=== PATIENT | female | born 1945 | race Caucasian/White ===

== ENCOUNTER 2016-06-12 12:09 | Outpatient (CLI) | payer MEDICARE | END 2016-06-12 12:10 | disposition home or self-care (01) | DX: N63 Unspecified lump in breast (principal) ==

== ENCOUNTER 2016-06-12 12:13 | Outpatient (CLI) | payer MEDICARE | END 2016-06-12 12:14 | disposition home or self-care (01) | DX: M19.042 Primary osteoarthritis, left hand (principal) ==

== ENCOUNTER 2016-06-19 13:34 | Outpatient (CLI) | payer MEDICARE | END 2016-06-19 13:35 | disposition home or self-care (01) | DX: N63 Unspecified lump in breast (principal) ==

== ENCOUNTER 2016-10-01 10:11 | Outpatient (CLI) | payer MEDICARE ==
[2016-10-01 18:01] LABS: BASOPHILS % (AUTO) 0.5 %; EOSINOPHILS # (AUTO) 0.1 10^3/uL (0.0-0.7); EOSINOPHILS % (AUTO) 2.5 %; HCT - HEMATOCRIT 34.6 % (37.0-47.0); HGB - HEMOGLOBIN 12.1 g/dL (12.0-16.0); LYMPHOCYTES # (AUTO) 1.5 10^3/uL (1.5-3.5); MEAN CORPUSCULAR HEMOGLOBIN 33.2 pg (27.0-31.0); MEAN CORPUSCULAR HGB CONC 34.9 g/dL (32.0-36.0); MEAN PLATELET VOLUME 8.5 fL (7.9-10.8); MONOCYTES # (AUTO) 0.3 10^3/uL (0.0-1.0); NEUTROPHILS # (AUTO) 2.2 10^3/uL (1.5-6.6); NUCLEATED RED BLOOD CELLS AUTO 0.1 /100WBC; RED BLOOD COUNT 3.65 10^6/uL (4.20-5.40); RED CELL DISTRIBUTION WIDTH 12.5 % (12.0-15.0); UNCORRECTED WHITE BLOOD COUNT 4.1 x10^3/uL; WHITE BLOOD COUNT 4.1 x10^3/uL (4.8-10.8)
[2016-10-01 18:12] LABS: ALBUMIN/GLOBULIN RATIO 1.5 (1.0-2.2); BILIRUBIN,TOTAL 0.6 mg/dL (0.2-1.0); BUN - BLOOD UREA NITROGEN 15 mg/dL (6-20); CARBON DIOXIDE - CO2 24 mmol/L (21-32); CHLORIDE 106 mmol/L (101-111); CHOLESTEROL 190 mg/dL; CREATININE 0.9 mg/dL (0.4-1.0); GFR - MDRD 62 (>89); GLUCOSE 121 mg/dL (70-100); HDL CHOLESTEROL 63 mg/dL; LDL/HDL RATIO 1.6 (<4.4); POTASSIUM 4.1 mmol/L (3.5-5.0); SODIUM 138 mmol/L (135-145); TOTAL PROTEIN 6.5 g/dL (6.7-8.2); TRIGLYCERIDES 127 mg/dL; VLDL CHOLESTEROL 25 mg/dL
== END 2016-10-01 10:12 | disposition home or self-care (01) ==
LOC: LAB.F 10:11
PROVIDERS: ATTEND Family Medicine
DX: Z00.00 Encounter for general adult medical examination without abnormal findings (principal); E55.9 Vitamin D deficiency, unspecified; D64.9 Anemia, unspecified
CPT/HCPCS: 36415; 80053; 80061; 82306; 85025

== ENCOUNTER 2017-07-18 16:27 | Outpatient (CLI) | payer MEDICARE | END 2017-07-18 16:28 | disposition EMS.NT | LOC: EMS 16:27 | PROVIDERS: ATTEND Surgery | DX: R22.0 Localized swelling, mass and lump, head (principal); V49.40XA Driver injured in collision with unspecified motor vehicles in traffic accident, initial encounter; Y92.413 State road as the place of occurrence of the external cause ==

== ENCOUNTER 2017-07-24 13:03 | Emergency (ER) | payer MEDICARE ==
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
[2017-07-24] MEDS ORDERED: IOPAMIDOL-300 50 ML VIAL ONE (15:11)
[2017-07-24 15:24] LABS: BASOPHILS % (AUTO) 0.5 %; EOSINOPHILS # (AUTO) 0.2 10^3/uL (0.0-0.7); EOSINOPHILS % (AUTO) 3.2 %; HGB - HEMOGLOBIN 12.4 g/dL (12.0-16.0); LYMPHOCYTES # (AUTO) 2.2 10^3/uL (1.5-3.5); LYMPHOCYTES % (AUTO) 43.9 %; MEAN CORPUSCULAR HEMOGLOBIN 31.5 pg (27.0-31.0); MEAN CORPUSCULAR HGB CONC 34.7 g/dL (32.0-36.0); MEAN PLATELET VOLUME 7.5 fL (7.9-10.8); MONOCYTES # (AUTO) 0.3 10^3/uL (0.0-1.0); MONOCYTES % (AUTO) 6.2 %; NEUTROPHILS # (AUTO) 2.3 10^3/uL (1.5-6.6); NEUTROPHILS % (AUTO) 46.2 %; PLT - PLATELET COUNT 190 10^3/uL (130-450); RED BLOOD COUNT 3.93 10^6/uL (4.20-5.40); RED CELL DISTRIBUTION WIDTH 13.4 % (12.0-15.0)
[2017-07-24 15:38] LABS: ALBUMIN 4.4 g/dL (3.2-5.5); ALBUMIN/GLOBULIN RATIO 1.3 (1.0-2.2); BILIRUBIN,TOTAL 0.6 mg/dL (0.2-1.0); CALCIUM 9.4 mg/dL (8.5-10.3); CREATININE 0.9 mg/dL (0.4-1.0); TOTAL PROTEIN 7.8 g/dL (6.7-8.2)
[2017-07-24] MEDS ORDERED: IOPAMIDOL-300 100 ML VIAL ONE (16:15)
[2017-07-24] MEDS ORDERED: IOPAMIDOL-300 100 ML VIAL IVP ONE (16:24)
[2017-07-24] MEDS ORDERED: IOPAMIDOL-300 50 ML VIAL PO ONE (16:36)
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
[2017-07-24 17:41] VITALS: BP 149/83
== END 2017-07-24 17:40 | disposition home or self-care (01) ==
LOC: ED 13:03
DX: K66.9 Disorder of peritoneum, unspecified (principal); S19.9XXA Unspecified injury of neck, initial encounter; V43.52XA Car driver injured in collision with other type car in traffic accident, initial encounter; Y92.410 Unspecified street and highway as the place of occurrence of the external cause; R03.0 Elevated blood-pressure reading, without diagnosis of hypertension; M54.5 Low back pain; Z96.649 Presence of unspecified artificial hip joint
CPT/HCPCS: 36415; 72125; 72131; 74177; 80053; 83690; 85025; 99283; Q9967

== ENCOUNTER 2018-07-29 09:14 | Outpatient (CLI) | payer MEDICARE ==
[2018-07-29 17:29] LABS: HEMOGLOBIN A1C 0.6 g/dL; HEMOGLOBIN A1C % 6.4 % (4.6-6.2)
[2018-07-29 17:35] LABS: ALBUMIN/GLOBULIN RATIO 1.3 (1.0-2.2); ALKALINE PHOSPHATASE 60 IU/L (42-121); ALT ALANINE AMINOTRANSFERASE 21 IU/L (10-60); AST ASPARTATE AMINOTRANSFERASE 20 IU/L (10-42); BILIRUBIN,TOTAL 0.7 mg/dL (0.2-1.0); BUN - BLOOD UREA NITROGEN 22 mg/dL (6-20); CALCIUM 9.4 mg/dL (8.5-10.3); CARBON DIOXIDE - CO2 26 mmol/L (21-32); CHLORIDE 102 mmol/L (101-111); CHOL/HDL RATIO 3.5 (<4.4); CHOLESTEROL 212 mg/dL; CREATININE 0.8 mg/dL (0.4-1.0); GFR - MDRD 71 (>89); GLUCOSE 130 mg/dL (70-100); HDL CHOLESTEROL 61 mg/dL; LDL CHOLESTEROL,CALCULATED 126 mg/dL; LDL/HDL RATIO 2.1 (<4.4); SODIUM 138 mmol/L (135-145); VLDL CHOLESTEROL 25 mg/dL
== END 2018-07-29 09:15 | disposition home or self-care (01) ==
LOC: LAB.F 09:14
PROVIDERS: ATTEND Internal Medicine
DX: I10 Essential (primary) hypertension (principal); R73.01 Impaired fasting glucose
CPT/HCPCS: 36415; 80053; 80061; 83036; 83721

== ENCOUNTER 2020-05-08 15:57 | Outpatient (CLI) | payer MEDICARE ==
--- NOTE | 2020-05-08 16:25 | XRAY Report ---
PROCEDURE: Knee 3 View RT INDICATIONS: RT KNEE PAIN TECHNIQUE: 3 views of the right knee(s) were acquired. COMPARISON: None. FINDINGS: Bones: No fractures or dislocations. No suspicious bony lesions. Moderate tricompartmental periart icular osteophyte formation. Moderate medial compartment narrowing. Soft tissues: No joint effusion. No suspicious soft tissue calcifications. IMPRESSION: 1. Osteoarthritis with medial compartment narrowing. 2. No acute fracture. No osseous lesion. If symptoms and/or clinical suspicion for pathology continue , further assessment with repeat plain films, or advanced imaging (e.g., CT, MRI, or bone scan) is re commended for further assessment. Reviewed by: Jose Persaud MD on 05/08/2020 4:24 PM PST Approved by: Jose Persaud MD on 05/08/2020 4:24 PM PST Station ID: [id number]
== END 2020-05-08 15:58 | disposition home or self-care (01) ==
LOC: DI 15:57
PROVIDERS: ATTEND Nurse Practitioner Family
DX: M17.11 Unilateral primary osteoarthritis, right knee (principal)

== ENCOUNTER 2021-01-29 08:42 | Outpatient (CLI) | payer MEDICARE ==
--- NOTE | 2021-01-30 11:51 | Mammography Report ---
BILATERAL DIGITAL SCREENING MAMMOGRAM 3D/2D: 01/29/2021 CLINICAL: Routine screening. Comparison is made to exams dated: 06/19/2016 ultrasound, 06/12/2016 mammogram, 09/07/2014 mammogram, and 02/11/2012 mammogram - [facility]. The tissue of both breasts is predominantly fa tty. No significant masses, calcifications, or other findings are seen in either breast. There has been no significant interval change. IMPRESSION: NEGATIVE There is no mammographic evidence of malignancy. A 1 year screening mammogram is recommended. This exam was interpreted at Station ID: [id number]. NOTE: For mammograms, a report in lay terms will be sent to the patient. Approximately 15% of breast malignancies will not be visualized mammographically. In the management of a palpable breast mass, a negative mammogram must not discourage biopsy of a clinically suspicious lesion. Electronically Signed By: Rylan Kang M.D., jr/raquel:01/29/2021 10:30:49 ACR BI-RADS Category 1: Negative 3341F PARENCHYMAL PATTERN: (F) - The breast(s) demonstrate(s) diffuse fatty replacement. BI-RADS CATEGORY: (1) - 1 RECOMMENDATION: (ANNUAL) - Recommend routine annual screening mammography. [id number] 1 year screening LATERALITY: (B)
== END 2021-01-29 08:43 | disposition home or self-care (01) ==
LOC: DI 08:42
PROVIDERS: ATTEND Nurse Practitioner Family
DX: Z12.31 Encounter for screening mammogram for malignant neoplasm of breast (principal)

== ENCOUNTER 2021-08-27 09:30 | Day surgery (SDC) | payer MEDICARE ==
[2021-08-27] MEDS ORDERED: LACTATED RINGERS 1,000 ML IV ONE ×2 (09:33→10:57)
[2021-08-27] MEDS ORDERED: PROPOFOL 500 MG/50 ML 500 MG/50 ML VIAL ONE (10:01)
--- NOTE | 2021-08-27 10:04 | ANESTHESIA ---
Pre-Anesthesia VS, & Labs - Diagnosis screening - Procedure colonoscopy Vital Signs: Temp Pulse Resp BP Pulse Ox 36.3 C L 104 H 18 145/76 H 96 08/27/21 09:37 08/27/21 09:37 08/27/21 09:37 08/27/21 09:37 08/27/21 09:37 Height: 5 ft 1 in Weight (kg): 80 kg Body Mass Index: 33.3 BMI Classification: Obese - NPO >8 hours - Is Patient ?: No - Lab Results Current Lab Results: Laboratory Tests 08/27/21 09:51: POC Whole Bld Glucose 101 H Lab results reviewed: Yes Home Medications and Allergies Multivitamin [Multivitamins] 1 each PO DAILY 12/29/12 Lisinopril [Zestril] 10 mg PO DAILY 12/14/20 Rosuvastatin Calcium [Crestor] 10 mg PO DAILY 12/14/20 hydroCHLOROthiazide [Hydrochlorothiazide] 25 mg PO DAILY 12/14/20 metFORMIN [Glucophage] 500 mg PO BIDWM 12/14/20 Allergies/Adverse Reactions: Allergies Allergy/AdvReac Type Severity Reaction Status Date / Time Latex, Natural Rubber Allergy Intermediate Hives Verified 12/29/12 14:35 Anes History & Medical History - Anesthetic History Anesthesia Complications: reports: No previous complications Family history of Anesthesia Complications: Denies Family history of Malignant Hyperthermia: Denies - Medical History Cardiovascular: reports: Hypertension, High cholesterol Pulmonary: reports: None Gastrointestinal: reports: None Urinary: reports: None Musculoskeletal: reports: None Endocrine/Autoimmune: reports: Type 2 diabetes Smoking Status: Never smoker - Surgical History General: reports: Cholecystectomy Eyes Ears Nose Throat (EENT): reports: Tonsil/Adenoidectomy Orthopedic: reports: Hip replacement Exam General: Alert, Oriented x3, Cooperative, No acute distress Dental: WNL Mouth Openin Fingerbreadth Neck Mobility: Normal Mallampati classification: II Plan Anesthesia Type: General, Total IV Consent for Procedure(s) Verified and Reviewed: Yes Code Status: Attempt Resuscitation ASA classification: 3-Severe systemic disease Is this case an emergency?: No
[2021-08-27] MEDS ORDERED: MIDAZOLAM 2 MG/2 ML VIAL ONE (10:21)
[2021-08-27] MEDS ORDERED: SODIUM CHLORIDE FLUSH 0.9% 10 ML SYRINGE IVP ONE (11:15)
[2021-08-27 12:20] VITALS: BP 117/65
--- NOTE | 2021-08-27 12:42 | ANESTHESIA POST OP EVALUATION ---
Anesthesia Post Eval - Post Anesthesia Eval Vitals: Last Vital Signs Temp 36 C L 08/27/21 12:15 Pulse 74 08/27/21 12:15 Resp 18 08/27/21 12:15 BP 117/65 08/27/21 12:15 Pulse Ox 94 08/27/21 12:15 CV Function Including HR & BP: Stable Pain Control: Satisfactory Nausea & Vomiting: Negative Mental Status: Baseline Respiratory Status: Airway Patent Hydration Status: Satisfactory Anesthesia Complications: None
== END 2021-08-27 09:31 | disposition home or self-care (01) ==
LOC: SDS 09:30
PROVIDERS: ATTEND Surgery
PROC: 0DBL8ZZ Excision of Transverse Colon, Via Natural or Artificial Opening Endoscopic (ICD-10-PCS; principal; 2021-08-27 10:45)
DX: Z12.11 Encounter for screening for malignant neoplasm of colon (principal); K63.5 Polyp of colon; K57.30 Diverticulosis of large intestine without perforation or abscess without bleeding; K64.8 Other hemorrhoids; K64.4 Residual hemorrhoidal skin tags; E66.9 Obesity, unspecified; Z68.33 Body mass index [BMI] 33.0-33.9, adult; E11.9 Type 2 diabetes mellitus without complications; Z79.84 Long term (current) use of oral hypoglycemic drugs
CPT/HCPCS: 45380; J7120

== ENCOUNTER 2022-10-31 11:37 | Outpatient (CLI) | payer MEDICARE ==
--- NOTE | 2022-10-31 16:25 | XRAY Report ---
PROCEDURE: Knee 3 View RT INDICATIONS: KNEE PAIN TECHNIQUE: 2 views of the right knee(s) were acquired. COMPARISON: X-ray right knee, 05/08/2020. FINDINGS: Bones: No fractures or dislocations. No suspicious bony lesions. Severe osteoarthritis, most pronou nced in the medial femorotibial compartment and patellofemoral compartment. Soft tissues: Small knee joint effusion. No suspicious soft tissue calcifications or masses. IMPRESSION: 1. Severe osteoarthritis. 2. Small knee joint effusion. Reviewed by: Suhail Luciano MD on 10/31/2022 4:24 PM PDT Approved by: Suhail Luciano MD on 10/31/2022 4:24 PM PDT Station ID: [id number]
== END 2022-10-31 11:38 | disposition home or self-care (01) ==
LOC: DI 11:37
PROVIDERS: ATTEND Nurse Practitioner Family
DX: M17.11 Unilateral primary osteoarthritis, right knee (principal); M25.461 Effusion, right knee

== ENCOUNTER 2022-12-01 08:00 | Outpatient (CLI) | payer MEDICARE ==
--- NOTE | 2022-12-01 12:09 | XRAY Report ---
PROCEDURE: Knee 2 View RT INDICATIONS: RIGHT KNEE PAIN, BILAT AP W/B AND RIGHT TUNNEL ONLY TECHNIQUE: 2 views of the bilateral and right knee(s) were acquired. COMPARISON: X-ray right knee 10/31/2022. FINDINGS: Bones: No fractures or dislocations. No suspicious bony lesions. Redemonstration of tricompartmenta l osteoarthritic changes of the right knee with severe joint space narrowing medially. Tricompartment al osteoarthritic changes of the left knee with moderate medial joint space narrowing. Soft tissues: No suspicious soft tissue calcifications or masses. IMPRESSION: Severe osteoarthritic changes of the right knee. Reviewed by: Moshe Slade MD on 12/01/2022 12:08 PM PDT Approved by: Moshe Slade MD on 12/01/2022 12:08 PM PDT Station ID: [id number]
== END 2022-12-01 23:59 | disposition home or self-care (01) ==
LOC: DI.WOS 08:00
PROVIDERS: ATTEND Physician Assistant Surgical
DX: M17.11 Unilateral primary osteoarthritis, right knee (principal)

== ENCOUNTER 2023-01-13 15:24 | Outpatient (CLI) | payer MEDICARE ==
--- NOTE | 2023-01-13 18:25 | Ultrasound Report ---
PROCEDURE: Carotid Doppler Complete INDICATIONS: CAROTID BRUIT TECHNIQUE: Duplex carotid ultrasound was obtained and customer success representative images were recorded with veloc ity measurements. Any estimate of stenosis was obtained with reference to standards endorsed by the [employer] COMPARISON: None. FINDINGS: Right side: Brachial blood pressure: 127/77 mm Hg. Common carotid artery peak systolic velocity: 73 cm/sec. Internal carotid artery peak systolic velocity: 79 cm/sec. Internal carotid artery end diastolic velocity: 20 cm/sec. External carotid artery peak systolic velocity: 53 cm/sec. ICA/CCA peak systolic ratio: 1.0 . Brennan scale imaging description: Mild arthritic plaque Percent internal carotid artery stenosis: Less than 50. Vertebral artery: Flow direction is antegrade. Left side: Brachial blood pressure: 142/68 mm Hg. Common carotid artery peak systolic velocity: 70 cm/sec. Internal carotid artery peak systolic velocity: 77 cm/sec. Internal carotid artery end diastolic velocity: 26 cm/sec. External carotid artery peak systolic velocity: 72 cm/sec. ICA/CCA peak systolic ratio: 1.1 . Brennan scale imaging description: Unremarkable Percent internal carotid artery stenosis: 0. Vertebral artery: Flow direction is antegrade. IMPRESSION: 1. Mild right proximal ICA extrahepatic plaque without hemodynamically significant stenosis in either proximal ICA Reviewed by: Benny Tineo MD on 01/13/2023 5:24 PM JULIA Approved by: Benny Tineo MD on 01/13/2023 5:24 PM AKDT Station ID: [id number]
== END 2023-01-13 15:25 | disposition home or self-care (01) ==
LOC: DI 15:24
PROVIDERS: ATTEND Nurse Practitioner Family
DX: Z00.00 Encounter for general adult medical examination without abnormal findings (principal); R09.89 Other specified symptoms and signs involving the circulatory and respiratory systems; I65.21 Occlusion and stenosis of right carotid artery
CPT/HCPCS: 93880

== ENCOUNTER 2023-02-04 14:09 | Outpatient (CLI) | payer MEDICARE ==
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
== END 2023-02-04 14:10 | disposition home or self-care (01) ==
LOC: DI 14:09
PROVIDERS: ATTEND Nurse Practitioner Family
DX: Z78.0 Asymptomatic menopausal state (principal); M85.80 Other specified disorders of bone density and structure, unspecified site

== ENCOUNTER 2023-02-11 06:27 | Day surgery (SDC) | payer MEDICARE ==
[~2023-02-11 06:27] MED LIST: ACETAMINOPHEN 500 MG TABLET PO ONE; CELECOXIB 100 MG CAPSULE PO ONE; ceFAZolin 2 GM VIAL ONE
[2023-02-11] MEDS ORDERED: LACTATED RINGERS 1,000 ML IV ONE (06:52)
[2023-02-11] MEDS ORDERED: dexAMETHasone 4 MG TABLET PO ONE (07:00)
[2023-02-11 07:05] LABS: BASOPHILS % (AUTO) 0.8 %; EOSINOPHILS # (AUTO) 0.2 10^3/uL (0.0-0.7); EOSINOPHILS % (AUTO) 3.7 %; HCT - HEMATOCRIT 30.4 % (37.0-47.0); HGB - HEMOGLOBIN 10.4 g/dL (12.0-16.0); LYMPHOCYTES # (AUTO) 2.3 10^3/uL (1.5-3.5); MEAN CORPUSCULAR HGB CONC 34.2 g/dL (32.0-36.0); MEAN CORPUSCULAR VOLUME 93.5 fL (81.0-99.0); MEAN PLATELET VOLUME 9.2 fL (7.9-10.8); MONOCYTES # (AUTO) 0.4 10^3/uL (0.0-1.0); MONOCYTES % (AUTO) 8.4 %; NEUTROPHILS # (AUTO) 2.2 10^3/uL (1.5-6.6); NEUTROPHILS % (AUTO) 41.9 %; PLT - PLATELET COUNT 202 10^3/uL (130-450); RED BLOOD COUNT 3.25 10^6/uL (4.20-5.40); RED CELL DISTRIBUTION WIDTH 12.3 % (12.0-15.0); WHITE BLOOD COUNT 5.1 x10^3/uL (4.8-10.8)
[2023-02-11] MEDS ORDERED: VANCOMYCIN 1 GM VIAL ONE (07:09)
[2023-02-11] MEDS ORDERED: KETOROLAC 30 MG/ML VIAL ONE (07:09)
[2023-02-11] MEDS ORDERED: BUPIVACAINE 0.25% PF 30 ML VIAL ONE (07:10)
[2023-02-11] MEDS ORDERED: MIDAZOLAM 2 MG/2 ML VIAL ONE (07:30)
[2023-02-11] MEDS ORDERED: PROPOFOL 200 MG/20 ML VIAL IVP ONE ×2 (07:52→09:41)
[2023-02-11] MEDS ORDERED: PHENYLEPHRINE HCL 0.5 MG/5 ML AMPULE ONE ×2 (07:52→09:19)
[2023-02-11] MEDS ORDERED: TRANEXAMIC ACID 1,000 MG/10 ML VIAL ONE ×2 (08:18→10:08)
[2023-02-11] MEDS ORDERED: DEXAMETHASONE 4 MG/ML VIAL ONE (08:21)
[2023-02-11] MEDS ORDERED: KETOROLAC 30 MG/ML VIAL IVP ONE (08:28)
[2023-02-11] MEDS ORDERED: BUPIVACAINE 0.25% PF 30 ML VIAL SUBQ ONE ×2 (08:29)
--- NOTE | 2023-02-11 08:36 | ANESTHESIA ---
Pre-Anesthesia VS, & Labs - Diagnosis R knee OA - Procedure R TKA Vital Signs: Temp Pulse Resp BP Pulse Ox O2 Flow Rate 36.8 C 72 16 123/74 95 16 02/11/23 06:46 02/11/23 06:46 02/11/23 06:46 02/11/23 06:46 02/11/23 06:46 02/11/23 06:46 Height: 5 ft 1 in Weight (kg): 75 kg Body Mass Index: 31.2 BMI Classification: Obese - NPO >8 hours - Is Patient ?: No - Lab Results Current Lab Results: Laboratory Tests 02/11/23 07:02: WBC 5.1, RBC 3.25 L, Hgb 10.4 L, Hct 30.4 L, MCV 93.5, MCH 32.0 H, MCHC 34.2, RDW 12.3, Plt Count 202, MPV 9.2, Neut # (Auto) 2.2, Lymph # (Auto) 2.3, Will # (Auto) 0.4, Eos # (Auto) 0.2, Baso # (Auto) 0.0, Absolute Nucleated RBC 0.00, Nucleated RBC % 0.0 02/11/23 06:59: POC Whole Bld Glucose 98 Fish Bones: 02/11/23 07:02 Home Medications and Allergies Home Medications: Ambulatory Orders Cholecalciferol (Vitamin D3) [Vitamin D3] 1,000 unit PO DAILY 02/09/23 Mv-Mn/Om3/Dha/Epa/Fish/Lut/Fabienne [Ocuvite Adult 50 Plus Softgel] 1 each PO DAILY 02/09/23 Turmeric/Turmeric Root Extract [Turmeric] 500 mg PO DAILY 02/09/23 Lisinopril [Zestril] 10 mg PO DAILY 12/14/20 Rosuvastatin Calcium [Crestor] 10 mg PO DAILY 12/14/20 hydroCHLOROthiazide [Hydrochlorothiazide] 25 mg PO DAILY 12/14/20 metFORMIN [Glucophage] 500 mg PO BIDWM 12/14/20 Cholecalciferol (Vitamin D3) [Vitamin D3] 1,000 unit PO DAILY 02/09/23 Mv-Mn/Om3/Dha/Epa/Fish/Lut/Fabienne [Ocuvite Adult 50 Plus Softgel] 1 each PO DAILY 02/09/23 Turmeric/Turmeric Root Extract [Turmeric] 500 mg PO DAILY 02/09/23 Allergies/Adverse Reactions: Allergies Allergy/AdvReac Type Severity Reaction Status Date / Time Latex, Natural Rubber Allergy Intermediate Hives Verified 12/29/12 14:35 Anes History & Medical History - Anesthetic History Anesthesia Complications: reports: No previous complications Family history of Anesthesia Complications: Denies Family history of Malignant Hyperthermia: Denies - Medical History Cardiovascular: reports: Hypertension, High cholesterol Pulmonary: reports: None Gastrointestinal: reports: None Urinary: reports: None Musculoskeletal: reports: Osteoarthritis Endocrine/Autoimmune: reports: Type 2 diabetes Skin: reports: None Smoking Status: Never smoker Psychosocial: reports: No issues indicated History of Cancer?: No - Surgical History General: reports: Colonoscopy Eyes Ears Nose Throat (EENT): reports: Tonsil/Adenoidectomy Orthopedic: reports: Hip replacement Exam General: Alert, Oriented x3, Cooperative Dental: WNL Mouth Openin Fingerbreadth Neck Mobility: Normal Mallampati classification: II Thyromental Distance: 4-6 cm Respiratory: Lungs clear Cardiovascular: Regular rate Plan Anesthesia Type: General (SAB with GA back-up), Spinal Consent for Procedure(s) Verified and Reviewed: Yes Code Status: Attempt Resuscitation ASA classification: 2-Mild systemic disease Is this case an emergency?: No
[2023-02-11] MEDS ORDERED: MORPHINE 2 MG/ML CARPUJECT IVP PRN (08:44)
[2023-02-11] MEDS ORDERED: ONDANSETRON 4 MG/2 ML VIAL IVP PRN ×2 (08:44→10:32)
[2023-02-11] MEDS ORDERED: PROPOFOL 500 MG/50 ML 500 MG/50 ML VIAL ONE (08:44)
[2023-02-11] MEDS ORDERED: HYDROmorphone 0.5 MG/0.5 ML SYRINGE IVP PRN (08:44)
[2023-02-11] MEDS ORDERED: fentaNYL 100 MCG/2 ML VIAL IVP PRN (08:44)
[2023-02-11] MEDS ORDERED: METOCLOPRAMIDE 10 MG/2 ML VIAL IVP PRN (08:44)
[2023-02-11] MEDS ORDERED: ATROPINE ABBOJECT 1 MG/10 ML SYRINGE IVP PRN (08:44)
[2023-02-11] MEDS ORDERED: ePHEDrine 50 MG/ML VIAL IVP PRN (08:44)
[2023-02-11] MEDS ORDERED: NALOXONE 0.4 MG/ML VIAL IVP PRN (08:44)
[2023-02-11] MEDS ORDERED: LACTATED RINGERS 1,000 ML IV SCH (09:00)
--- NOTE | 2023-02-11 10:04 | OPERATIVE REPORT ---
Operative Report - General Procedure Date: 02/11/23 Planned Procedure: Right total knee replacement Pre-Op Diagnosis: Osteoarthritis right knee Procedure Performed: Right total knee replacement using Salgado [employer] Nephew antibiotic cemented journey 2 total knee system: #4 Oxinium femoral component, cruciate retaining; #4 primary tibial baseplate, 9 mm tibial bearing, 23 mm biconvex patella Post Op Diagnosis: Same as preoperative diagnosis - Procedure Note Primary Surgeon: Narendra Martinez MD Secondary Surgeon: Danilo Bates MD; Ayesha Guillory [facility] Anesthesia Provider: Riri Elmore CRNA Anesthesia Technique: Spinal Estimated Blood Loss (mL): 150 Indications: This is a 77-year-old woman with chronic activity related knee pain that has progressed over the past couple years. She has increasing pain and disability with activities of daily living and activities that she enjoys doing. She has tried nonoperative treatment; this has been documented in the preoperative clinic notes and history and physical. Her exam showed decreased motion, tenderness about the joint line but good stability and strength. Her x-rays showed considerable wear to the medial compartment with near [id number] on standing x-rays. She has signed informed consent agreeing to the right total knee replacement. The goal is to improve her pain and function with walking activities Findings: There was eburnated bone surfaces to the medial compartment with osteophytes about the entire tibiofemoral joint and patellofemoral joint. There was full- thickness weightbearing articular surface loss to the lateral femoral condyle. There was a nonspecific synovitis in the knee. The cruciate ligaments were intact. The menisci were intact. Complications: None - Other Other Information/Narrative: The patient was brought to the operating room and was placed in a supine position. A pneumatic tourniquet was applied to the proximal right thigh over cast padding. This was a conical shaped Luke thigh tourniquet that was sterile. A knee positioner was placed on the operating room table to facilitate knee flexion of the right knee during surgery. A timeout procedure was perfo rmed by the entire operating room team and all were in agreement. A midline longitudinal incision was made with the knee in flexion. A medial parapatellar arthrotomy was made. The anterior horn of medial and lateral menisci were released and part of patellar fat pad was excised. The knee was flexed and the patella was dislocated laterally. A drill hole was made in the intramedullary notch with a 9.5 mm drill. Osteophytes about the proximal tibia and femur had been removed with a rongure. The distal femoral cutting guide was aligned parallel to the posterior condyles. The intramedullary adrienne and guide was advanced and the distal femoral guide was stabilized with half pins. The distal 5 degrees valgus primary cut was made through the distal femoral guide. Next the extra medullary tibial guide was assembled and applied and aligned to the mechanical axis in both sagittal and coronal planes. Tibial referencing was done to allow 3 mm of bone from the most affected side. The tibial guide was stabilized with half pins. Retractors were placed medially and laterally to protect the collateral ligaments and a retractor was placed directly against the posterior bone to sublux the tibia anteriorly. A precision Snapt saw was used to make the tibial proximal cut. The tibial block was removed as a single piece and the menisci were removed as well. The extension gap was assessed with a extension block spacer using a 10 mm spacer and this was found to fit well as well as the 10 mm spacer block with the knee in 90 degrees of flexion. Next the femoral positioning guide was applied and aligned to the epicondylar axis and Kingfisher line. This was secured in place with approximately 3 degrees of external rotation. The size of the femur at the anterior lateral trochlea was a #4. Drill holes were made in the 5 and 1 #4 cutting block was inserted and secured. The 5 cuts were made to the captured block using precision saw. The flexion gap was assessed with the 11 mm spacer and was found to fit well. The patella was then prepared. A biconvex patellar reamer was used. The tibial trial #3 was then applied to the tibia and aligned to the mechanical axis. The punch fin was utilized. Trial reduction was performed with the femoral and tibial components in place. Notch resection was then through the trial component with reamer and box osteotome. Pulsatile lavage was performed. A tourniquet was applied during the cementing process. The components were inserted sequentially: Tibia, femur and lastly patellar component. Excess cement was removed and the knee was placed in extension during the hardening. Dilute Betadine irrigation was performed. The knee had full range of motion, good patellar tracking. There was good stability of the knee in full extension mid flexion and 90 degrees of flexion. There was good alignment of the right knee. The tourniquet had been deflated and had been in place for 18 minutes. Hemostasis was achieved with electrocautery. Vancomycin 2 g powder was placed in the knee joint prior to the deep closure The deep closure was performed with #1 Stratofix suture to close the arthrotomy incision. 2-0 stratofix was used to c lose the subcutaneous tissue. 3-0 Monocryl was used to do a subcuticular skin closure. Dermabond was applied to the skin incision. After the Dermabond had hardened, a silver impregnated dressing was applied. The patient tolerated the procedure well and received 2 g of Ancef intravenously and 2 g of tranexamic acid.A physician [employer] assistant football coach was used and felt to be medically necessary to provide retraction, protection of vital structures, exposure, skin closure and dressing.
[2023-02-11] MEDS ORDERED: LACTATED RINGERS 700 ML IV ONE ×2 (10:27)
[2023-02-11] MEDS ORDERED: DOCUSATE SODIUM 100 MG CAPSULE PO PRN (10:32)
[2023-02-11] MEDS ORDERED: SODIUM CHLORIDE FLUSH 0.9% 10 ML SYRINGE IVP PRN (10:32)
[2023-02-11] MEDS ORDERED: oxyCODONE 5 MG TABLET PO PRN (10:32)
[2023-02-11] MEDS ORDERED: fentaNYL 250 MCG/5 ML VIAL IVP PRN (10:32)
[2023-02-11] MEDS ORDERED: ACETAMINOPHEN 500 MG TABLET PO SCH (11:00)
[2023-02-11] MEDS ORDERED: ceFAZolin (2G) 2 GM in SODIUM CHLORIDE 0.9% MINIBAG 100 ML IV SCH (11:00)
[2023-02-11] MEDS ORDERED: NS W/20 MEQ KCL 1,000 ML IV SCH (11:00)
--- NOTE | 2023-02-11 11:40 | XRAY Report ---
PROCEDURE: Knee 2 View RT INDICATIONS: Post operative imaging TECHNIQUE: 2 views of the right knee(s) were acquired. COMPARISON: None. FINDINGS: Bones: Expected immediate postoperative appearance, status post total right knee arthroplasty. No ev idence of hardware failure or loosening. No fractures or dislocations. No suspicious bony lesions. Soft tissues: Expected postoperative air in the joint. No suspicious soft tissue calcifications or ma sses. IMPRESSION: Expected immediate postoperative appearance. Reviewed by: Gilson Huitron MD on 02/11/2023 11:38 AM PDT Approved by: Gilson Huitron MD on 02/11/2023 11:38 AM PDT Station ID: [id number]
[2023-02-11] MEDS ORDERED: traMADol 50 MG TABLET PO SCH (12:00)
[2023-02-11 14:47] VITALS: O2SAT 98
[2023-02-11] MEDS ORDERED: SODIUM CHLORIDE FLUSH 0.9% 10 ML SYRINGE IVP SCH (17:00)
[2023-02-11] MEDS ORDERED: metFORMIN 500 MG TABLET PO SCH (17:00)
[2023-02-11 17:05] VITALS: BP 115/67
--- NOTE | 2023-02-11 19:59 | ANESTHESIA POST OP EVALUATION ---
Anesthesia Post Eval - Post Anesthesia Eval Vitals: Last Vital Signs Temp 36.5 C 02/11/23 14:15 Pulse 87 02/11/23 14:15 Resp 19 02/11/23 14:15 BP 113/65 02/11/23 14:15 Pulse Ox 98 02/11/23 14:15 O2 Flow Rate 16 02/11/23 06:46 CV Function Including HR & BP: Stable Pain Control: Satisfactory Nausea & Vomiting: Negative Mental Status: Baseline Respiratory Status: Airway Patent Hydration Status: Satisfactory Anesthesia Complications: None
[2023-02-11] MEDS ORDERED: ethyl alcohoL 62% SWAB AMPULE NAS SCH (21:00)
[2023-02-11] MEDS ORDERED: CELECOXIB 100 MG CAPSULE PO SCH (21:00)
[2023-02-12] MEDS ORDERED: hydroCHLOROthiazide 25 MG TABLET PO SCH (09:00)
[2023-02-12] MEDS ORDERED: lisinopriL 20 MG TABLET PO SCH (09:00)
[2023-02-12] MEDS ORDERED: ASPIRIN EC 81 MG TABLET PO SCH (09:00)
== END 2023-02-11 16:15 | disposition home or self-care (01) ==
LOC: SDS 06:27 → MS2 10:26 → SDS 16:15
PROVIDERS: ATTEND Orthopaedic Surgery
DX: M17.11 Unilateral primary osteoarthritis, right knee (principal); E11.9 Type 2 diabetes mellitus without complications; E66.9 Obesity, unspecified; Z68.31 Body mass index [BMI] 31.0-31.9, adult
CPT/HCPCS: 27447; 36415; 73560; 85025; 97110; 97161; 97166; A9270; C1713; J2372; J3010; J3370; J7120; J8540

== ENCOUNTER 2023-03-18 08:45 | Outpatient (CLI) | payer MEDICARE ==
--- NOTE | 2023-03-19 11:54 | XRAY Report ---
PROCEDURE: Knee 4 View RT INDICATIONS: RIGHT KNEE TOTAL TECHNIQUE: 4 views of the knee(s) were acquired. COMPARISON: 02/11/2023. FINDINGS: Bones: Stable postsurgical changes of right total knee arthroplasty without evidence for hardware co mplication. No fractures or dislocations. No suspicious bony lesions. Degenerative changes of the left knee are present. Soft tissues: No significant knee joint effusion. No suspicious soft tissue calcifications or masses . IMPRESSION: Stable postsurgical changes of right total knee arthroplasty without evidence for hardware complicati on. Degenerative changes of the left knee. Reviewed by: Felton Quintero MD on 03/19/2023 11:53 AM PST Approved by: Felton Quintero MD on 03/19/2023 11:53 AM PST Station ID: [id number]
== END 2023-03-18 23:59 | disposition home or self-care (01) ==
LOC: DI.WOS 08:45
PROVIDERS: ATTEND Orthopaedic Surgery
DX: Z96.651 Presence of right artificial knee joint (principal); M17.12 Unilateral primary osteoarthritis, left knee